=== PATIENT | female | born 1975 | race Caucasian/White ===

== ENCOUNTER 2017-10-01 04:49 | Inpatient (IN) | payer MEDICAID ==
[~2017-10-01] VITALS: Ht 162.6 cm; Wt 88.5 kg
[~2017-10-01 04:49] MED LIST: GABA-533 PO; LURA20TA PO; LURA40 PO
[2017-10-01] MEDS ORDERED: HALOPERIDOL 5 MG TABLET PO PRN (08:00)
[2017-10-01] MEDS ORDERED: LORazepam 2 MG TABLET PO PRN (08:00)
[2017-10-01 08:53] VITALS: BP 113/70
[2017-10-01] MEDS: BACITRACIN 28.4 GM OINTMENT TP SCH ×2 (10:20→16:14)
[2017-10-01] MEDS ORDERED: IBUPROFEN 400 MG TABLET PO PRN (16:15)
[2017-10-01] MEDS ORDERED: ACETAMINOPHEN 325 MG TABLET PO PRN (16:15)
[2017-10-01 16:25] VITALS: BP 114/66
[2017-10-01] MEDS: OLANZapine 7.5 MG TABLET PO SCH (21:12)
[2017-10-02 06:21] VITALS: BP 104/61
[2017-10-02 08:27] LABS: AMPHET/METH SCREEN,URINE POSITIVE (NEGATIVE); BARBITURATE SCREEN, URINE NEGATIVE (NEGATIVE); BENZODIAZEPINES SCREEN,URINE NEGATIVE (NEGATIVE); CANNABINOID SCREEN,URINE POSITIVE (NEGATIVE); COCAINE SCREEN,URINE NEGATIVE (NEGATIVE); METHADONE SCREEN, URINE NEGATIVE (NEGATIVE); OPIATE SCREEN,URINE NEGATIVE (NEGATIVE)
[2017-10-02 08:28] LABS: PHENCYCLIDINE SCREEN,URINE NEGATIVE (NEGATIVE)
[2017-10-02 08:32] VITALS: BP 112/60
[2017-10-02] MEDS: BACITRACIN 28.4 GM OINTMENT TP SCH ×2 (08:42→16:40)
[2017-10-02 10:23] LABS: BILIRUBIN,URINE NEGATIVE (NEGATIVE); GLUCOSE, URINE (UA) NEGATIVE (NEGATIVE); KETONES,URINE NEGATIVE (NEGATIVE); LEUKOCYTE ESTERASE ,URINE NEGATIVE (NEGATIVE); NITRATE,URINE NEGATIVE (NEGATIVE); OCCULT BLOOD,URINE NEGATIVE (NEGATIVE); PH,URINE 5.5 (5.0-8.0); PROTEIN,URINE NEGATIVE (NEGATIVE); UROBILINOGEN,URINE 0.2 mg/dL (<=1.0)
[2017-10-02 10:45] LABS: APPEARANCE,URINE TURBID (CLEAR)
[2017-10-02 16:17] VITALS: BP 117/67
[2017-10-02] MEDS: OLANZapine 7.5 MG TABLET PO SCH (20:17)
[2017-10-03 06:08] VITALS: BP 124/69
[2017-10-03] MEDS: BACITRACIN 28.4 GM OINTMENT TP SCH ×2 (08:32→16:39)
[2017-10-03 08:49] VITALS: BP 98/61
[2017-10-03 16:22] VITALS: BP 108/60
[2017-10-03] MEDS: OLANZapine 7.5 MG TABLET PO SCH (20:10)
[2017-10-04] MEDS: BACITRACIN 28.4 GM OINTMENT TP SCH ×2 (09:06→17:01)
[2017-10-04 16:28] VITALS: BP 127/81
[2017-10-04] MEDS: OLANZapine 7.5 MG TABLET PO SCH (20:47)
[2017-10-04] MEDS: ZOLPIDEM TARTRATE 10 MG TABLET PO PRN (21:06)
[2017-10-05 02:45] VITALS: BP 117/72
[2017-10-05] MEDS: BACITRACIN 28.4 GM OINTMENT TP SCH ×2 (09:23→17:03)
[2017-10-05 16:21] VITALS: BP 114/67
[2017-10-05] MEDS: OLANZapine 7.5 MG TABLET PO SCH (20:24)
[2017-10-05] MEDS: ZOLPIDEM TARTRATE 10 MG TABLET PO PRN (20:25)
[2017-10-06] VITALS: BP 120/76
[2017-10-06] MEDS ORDERED: OLAN7.5T2 PO (08:34)
[2017-10-06] MEDS: BACITRACIN 28.4 GM OINTMENT TP SCH (08:39)
== END 2017-10-06 13:20 | disposition home or self-care (01) | DRG 750 ==
LOC: B2S 07:00
PROVIDERS: ADMIT Psychiatry & Neurology Psychiatry; ATTEND Psychiatry & Neurology Psychiatry
DX: F25.9 Schizoaffective disorder, unspecified (principal); R45.851 Suicidal ideations; Z59.0 Homelessness; I10 Essential (primary) hypertension; F32.9 Major depressive disorder, single episode, unspecified; D64.9 Anemia, unspecified; F12.90 Cannabis use, unspecified, uncomplicated; F15.90 Other stimulant use, unspecified, uncomplicated; Z90.49 Acquired absence of other specified parts of digestive tract; Z79.899 Other long term (current) drug therapy
CPT/HCPCS: 80307

== ENCOUNTER 2018-02-18 11:41 | Inpatient (IN) | payer MEDICAID ==
[~2018-02-18] VITALS: Ht 162.6 cm; Wt 77.3 kg
[~2018-02-18 11:41] MED LIST changes: -GABA-533 PO; -LURA20TA PO; -LURA40 PO; +OLAN7.5T2 PO
[2018-02-18 12:22] VITALS: BP 124/81
[2018-02-18 14:05] VITALS: BP 118/77
[2018-02-18] MEDS ORDERED: PNEUMOCOCCAL VACCINE POLYVALENT 0.5 ML VIAL [PPSV23] IM ONE (14:30)
[2018-02-18] MEDS: CEFUROXIME AXETIL 250 MG TABLET PO SCH (17:16)
[2018-02-18] MEDS: LORazepam 2 MG TABLET PO PRN (17:16)
[2018-02-18] MEDS: ZOLPIDEM TARTRATE 10 MG TABLET PO PRN (21:22)
[2018-02-18] MEDS: OLANZapine 10 MG TABLET PO SCH (21:22)
[2018-02-19 06:55] VITALS: BP 122/60
[2018-02-19 08:37] VITALS: BP 110/60
[2018-02-19 08:49] LABS: AMPHET/METH SCREEN,URINE POSITIVE (NEGATIVE); BARBITURATE SCREEN, URINE NEGATIVE (NEGATIVE); BENZODIAZEPINES SCREEN,URINE NEGATIVE (NEGATIVE); CANNABINOID SCREEN,URINE POSITIVE (NEGATIVE); COCAINE SCREEN,URINE NEGATIVE (NEGATIVE); METHADONE SCREEN, URINE NEGATIVE (NEGATIVE); OPIATE SCREEN,URINE NEGATIVE (NEGATIVE)
[2018-02-19 08:50] LABS: PHENCYCLIDINE SCREEN,URINE NEGATIVE (NEGATIVE)
[2018-02-19 09:15] LABS: APPEARANCE,URINE CLEAR (CLEAR); BILIRUBIN,URINE NEGATIVE (NEGATIVE); GLUCOSE, URINE (UA) NEGATIVE (NEGATIVE); KETONES,URINE NEGATIVE (NEGATIVE); LEUKOCYTE ESTERASE ,URINE NEGATIVE (NEGATIVE); NITRATE,URINE NEGATIVE (NEGATIVE); OCCULT BLOOD,URINE NEGATIVE (NEGATIVE); PROTEIN,URINE NEGATIVE (NEGATIVE); UROBILINOGEN,URINE 0.2 mg/dL (<=1.0)
[2018-02-19] MEDS: CEFUROXIME AXETIL 250 MG TABLET PO SCH ×2 (10:26→21:12)
[2018-02-19 16:27] VITALS: BP 100/60
[2018-02-19] MEDS: OLANZapine 10 MG TABLET PO SCH (21:12)
[2018-02-20 06:43] VITALS: BP 109/66
[2018-02-20 08:29] VITALS: BP 104/65
[2018-02-20] MEDS: CEFUROXIME AXETIL 250 MG TABLET PO SCH ×2 (09:56→16:26)
[2018-02-20 16:14] VITALS: BP 112/68
[2018-02-20] MEDS: LORazepam 2 MG TABLET PO PRN (16:26)
[2018-02-20] MEDS: OLANZapine 10 MG TABLET PO SCH (20:07)
[2018-02-21] VITALS: BP 117/73
[2018-02-21] MEDS: CEFUROXIME AXETIL 250 MG TABLET PO SCH (10:10)
[2018-02-21] MEDS: LORazepam 2 MG TABLET PO PRN (15:47)
[2018-02-21] MEDS: HALOPERIDOL 5 MG TABLET PO PRN (15:47)
[2018-02-21 16:39] VITALS: BP 117/80
[2018-02-21] MEDS: OLANZapine 10 MG TABLET PO SCH ×2 (21:00→21:29)
[2018-02-22 05:33] VITALS: BP 120/81
[2018-02-22 09:05] VITALS: BP 109/67
[2018-02-22] MEDS: HALOPERIDOL 5 MG TABLET PO PRN (16:10)
[2018-02-22] MEDS: LORazepam 2 MG TABLET PO PRN (16:10)
[2018-02-22 16:21] VITALS: BP 112/74
[2018-02-22] MEDS: ZOLPIDEM TARTRATE 10 MG TABLET PO PRN (20:18)
[2018-02-22] MEDS: OLANZapine 10 MG TABLET PO SCH (21:00)
[2018-02-23 06:12] VITALS: BP 110/68
[2018-02-23] MEDS: LORazepam 2 MG TABLET PO PRN ×2 (09:33→17:46)
[2018-02-23] MEDS: OLANZapine 10 MG TABLET PO SCH (20:58)
[2018-02-23] MEDS: ZOLPIDEM TARTRATE 10 MG TABLET PO PRN (21:27)
[2018-02-24] MEDS ORDERED: OLAN10TA3 PO (07:50)
== END 2018-02-24 12:30 | disposition home or self-care (01) | DRG 750 ==
LOC: B2S 13:30
PROVIDERS: ADMIT Psychiatry & Neurology Psychiatry; ATTEND Psychiatry & Neurology Psychiatry
DX: F25.1 Schizoaffective disorder, depressive type (principal); Z59.0 Homelessness; D64.9 Anemia, unspecified; F19.10 Other psychoactive substance abuse, uncomplicated; Z65.3 Problems related to other legal circumstances; F15.10 Other stimulant abuse, uncomplicated; F12.10 Cannabis abuse, uncomplicated; Z90.49 Acquired absence of other specified parts of digestive tract; Z91.5 Personal history of self-harm; Z71.51 Drug abuse counseling and surveillance of drug abuser
CPT/HCPCS: 80307; 90471

== ENCOUNTER 2018-02-26 14:23 | Inpatient (IN) | payer MEDICAID ==
[~2018-02-26] VITALS: Ht 162.6 cm; Wt 76.2 kg
[2018-02-26 15:18] VITALS: BP 128/80
[2018-02-26] MEDS ORDERED: HALOPERIDOL 5 MG TABLET PO PRN (16:00)
[2018-02-26 16:26] VITALS: BP 118/80
[2018-02-26] MEDS ORDERED: PETROLATUM,WHITE 71 GM JELLY TP PRN (20:15)
[2018-02-26] MEDS ORDERED: GuaiFENesin/D-METHORPHAN [SUGAR-FREE] 200-20MG/10 ML SYRUP UDCUP PO PRN (20:15)
[2018-02-26] MEDS ORDERED: IBUPROFEN 400 MG TABLET PO PRN (20:15)
[2018-02-26] MEDS ORDERED: ONDANSETRON HCL 4 MG TABLET PO PRN (20:15)
[2018-02-26] MEDS ORDERED: CloNIDine HCL 0.1 MG TABLET PO PRN (20:15)
[2018-02-26] MEDS ORDERED: LOPERAMIDE HCL 2 MG CAPSULE PO PRN (20:15)
[2018-02-26] MEDS ORDERED: MAG HYDROX/AL HYDROX/SIMETH ES 30 ML SUSPENSION UDCUP PO PRN (20:15)
[2018-02-26] MEDS ORDERED: ALBUTEROL SULFATE HFA 90 MCG/PUFF 8 GM INHALER IH PRN (20:15)
[2018-02-26] MEDS ORDERED: MAGNESIUM HYDROXIDE SUSPENSION 30 ML UDCUP PO PRN (20:15)
[2018-02-26] MEDS ORDERED: NICOTINE 14 MG/24 HOUR PATCH TD PRN (20:15)
[2018-02-26] MEDS ORDERED: ACETAMINOPHEN 325 MG TABLET PO PRN (20:15)
[2018-02-26] MEDS ORDERED: DOCUSATE SODIUM 100 MG CAPSULE PO PRN (20:15)
[2018-02-27 04:00] VITALS: BP 114/75
[2018-02-27 08:01] VITALS: BP 112/81
[2018-02-27] MEDS: PALIPERIDONE 3 MG ER TABLET PO SCH (10:01)
[2018-02-27 16:00] VITALS: BP 114/68
[2018-02-27] MEDS: ZOLPIDEM TARTRATE 10 MG TABLET PO PRN (20:31)
[2018-02-28 07:04] VITALS: BP 120/81
[2018-02-28 08:17] VITALS: BP 108/61
[2018-02-28] MEDS: PALIPERIDONE 3 MG ER TABLET PO SCH (09:45)
[2018-02-28] MEDS: LORazepam 2 MG TABLET PO PRN ×2 (10:09→18:28)
[2018-02-28 16:13] VITALS: BP 115/73
[2018-03-01 06:11] VITALS: BP 120/81
[2018-03-01 08:19] LABS: AMPHET/METH SCREEN,URINE POSITIVE (NEGATIVE); BARBITURATE SCREEN, URINE NEGATIVE (NEGATIVE); BENZODIAZEPINES SCREEN,URINE NEGATIVE (NEGATIVE); CANNABINOID SCREEN,URINE POSITIVE (NEGATIVE); COCAINE SCREEN,URINE NEGATIVE (NEGATIVE); METHADONE SCREEN, URINE NEGATIVE (NEGATIVE); OPIATE SCREEN,URINE NEGATIVE (NEGATIVE)
[2018-03-01] MEDS: PALIPERIDONE 3 MG ER TABLET PO SCH (08:22)
[2018-03-01 08:40] LABS: PHENCYCLIDINE SCREEN,URINE NEGATIVE (NEGATIVE)
[2018-03-01] MEDS: LORazepam 2 MG TABLET PO PRN ×3 (08:52→21:21)
[2018-03-01 09:14] VITALS: BP 113/69
[2018-03-01 09:26] LABS: APPEARANCE,URINE CLEAR (CLEAR); BILIRUBIN,URINE NEGATIVE (NEGATIVE); GLUCOSE, URINE (UA) NEGATIVE (NEGATIVE); KETONES,URINE NEGATIVE (NEGATIVE); LEUKOCYTE ESTERASE ,URINE NEGATIVE (NEGATIVE); NITRATE,URINE NEGATIVE (NEGATIVE); OCCULT BLOOD,URINE NEGATIVE (NEGATIVE); PH,URINE 5.5 (5.0-8.0); PROTEIN,URINE NEGATIVE (NEGATIVE); UROBILINOGEN,URINE 0.2 mg/dL (<=1.0)
[2018-03-01 16:07] VITALS: BP 120/70
[2018-03-01] MEDS: ZOLPIDEM TARTRATE 10 MG TABLET PO PRN (20:40)
[2018-03-02 00:50] VITALS: BP 110/63
[2018-03-02 08:41] VITALS: BP 106/57
[2018-03-02] MEDS: PALIPERIDONE 3 MG ER TABLET PO SCH (08:51)
[2018-03-02] MEDS: LORazepam 2 MG TABLET PO PRN ×2 (11:09→19:53)
[2018-03-02 16:06] VITALS: BP 110/74
[2018-03-02] MEDS: ZOLPIDEM TARTRATE 10 MG TABLET PO PRN (20:49)
[2018-03-03 00:08] VITALS: BP 110/68
[2018-03-03 00:16] VITALS: BP 104/67
[2018-03-03] MEDS ORDERED: PALI3 PO (07:44)
[2018-03-03] MEDS: PALIPERIDONE 3 MG ER TABLET PO SCH (08:26)
[2018-03-03 08:40] VITALS: BP 112/65
== END 2018-03-03 09:45 | disposition home or self-care (01) | DRG 750 ==
LOC: B2S 15:50
PROVIDERS: ATTEND Psychiatry & Neurology Psychiatry
DX: F25.0 Schizoaffective disorder, bipolar type (principal); R45.851 Suicidal ideations; Z59.0 Homelessness; F15.10 Other stimulant abuse, uncomplicated; F41.9 Anxiety disorder, unspecified; Z65.3 Problems related to other legal circumstances; Z91.19 Patient's noncompliance with other medical treatment and regimen; Z79.899 Other long term (current) drug therapy; Z90.49 Acquired absence of other specified parts of digestive tract; Z71.51 Drug abuse counseling and surveillance of drug abuser; Z28.21 Immunization not carried out because of patient refusal
CPT/HCPCS: 80307; 87081

== ENCOUNTER 2018-03-04 12:44 | Inpatient (IN) | payer MEDICAID, OTHER ==
[~2018-03-04] VITALS: Ht 162.6 cm; Wt 77.5 kg
[~2018-03-04 12:44] MED LIST changes: -OLAN7.5T2 PO; +PALI3 PO
[2018-03-04 13:39] LABS: BASOPHILS % (AUTO) 0.5 % (0.0-2.0); EOSINOPHILS % (AUTO) 0.4 % (1.0-6.0); HEMATOCRIT 37.4 % (36-46); HEMOGLOBIN 12.5 g/dL (12.0-16.0); LYMPHOCYTES # (AUTO) 1.8 K/uL (1.0-4.8); LYMPHOCYTES % (AUTO) 23.1 % (22.0-44.0); MEAN CORPUSCULAR HEMOGLOBIN 32.5 pg (26.0-34.0); MEAN CORPUSCULAR HGB CONC 33.3 G/dL (31.0-37.0); MEAN CORPUSCULAR VOLUME 97 fL (80-100); MONOCYTES # (AUTO) 0.4 K/uL (0.1-1.0); MONOCYTES % (AUTO) 5.4 % (2.0-9.0); NEUTROPHILS # (AUTO) 5.4 K/uL (1.8-7.7); NEUTROPHILS % (AUTO) 70.6 % (40.0-70.0); PLATELET COUNT (AUTO) 331 K/uL (150-450); RED BLOOD CELL COUNT(AUTO) 3.84 MIL/uL (4.00-5.20); RED CELL DISTRIBUTION WIDTH 14.2 % (11.5-14.5)
[2018-03-04 13:44] LABS: AMPHET/METH SCREEN,URINE NEGATIVE (NEGATIVE); BARBITURATE SCREEN, URINE NEGATIVE (NEGATIVE); BENZODIAZEPINES SCREEN,URINE NEGATIVE (NEGATIVE); CANNABINOID SCREEN,URINE POSITIVE (NEGATIVE); COCAINE SCREEN,URINE NEGATIVE (NEGATIVE); METHADONE SCREEN, URINE NEGATIVE (NEGATIVE); OPIATE SCREEN,URINE NEGATIVE (NEGATIVE)
[2018-03-04 13:45] LABS: PHENCYCLIDINE SCREEN,URINE NEGATIVE (NEGATIVE)
[2018-03-04 13:47] LABS: ANION GAP 7 mmol/L (8-16); CALCIUM, TOTAL 8.4 mg/dL (8.8-10.5); CARBON DIOXIDE 28 mmol/L (22-29); CHLORIDE 104 mmol/L (98-107); CREATININE 0.62 mg/dL (0.60-1.30); GLOMERULAR FILTR. RATE CALC > 60 mL/min (>60); GLUCOSE,RANDOM 119 mg/dL (70-110); POTASSIUM 4.1 mmol/L (3.5-5.1); SODIUM SERUM 139 mmol/L (136-145); UREA NITROGEN, BLOOD 8 mg/dL (7-18)
[2018-03-04 13:53] LABS: ALANINE AMINOTRANSFERASE 20 U/L (12-78); ALBUMIN 3.4 g/dL (3.4-5.0); ALKALINE PHOSPHATASE 81 U/L (46-116); ASPARTATE AMINOTRANSFERASE 11 U/L (15-37); BILIRUBIN,TOTAL 0.2 mg/dL (0.1-1.0); TOTAL PROTEIN, SERUM 7.5 g/dL (6.4-8.2)
[2018-03-04] MEDS ORDERED: DiphenhydrAMINE HCL 25 MG CAPSULE PO ONE (14:45)
[2018-03-04] MEDS ORDERED: HALOPERIDOL 5 MG TABLET PO ONE (14:45)
[2018-03-04 17:45] VITALS: BP 122/78
[2018-03-04] MEDS ORDERED: MAGNESIUM HYDROXIDE SUSPENSION 30 ML UDCUP PO PRN (18:30)
[2018-03-04] MEDS ORDERED: PETROLATUM,WHITE 71 GM JELLY TP PRN (18:30)
[2018-03-04] MEDS ORDERED: LOPERAMIDE HCL 2 MG CAPSULE PO PRN (18:30)
[2018-03-04] MEDS ORDERED: MAG HYDROX/AL HYDROX/SIMETH ES 30 ML SUSPENSION UDCUP PO PRN (18:30)
[2018-03-04] MEDS ORDERED: DOCUSATE SODIUM 100 MG CAPSULE PO PRN (18:30)
[2018-03-04] MEDS ORDERED: ACETAMINOPHEN 325 MG TABLET PO PRN (18:30)
[2018-03-05] MEDS ORDERED: NICOTINE 14 MG/24 HOUR PATCH TD SCH (09:00)
[2018-03-05] MEDS: LORazepam 2 MG TABLET PO PRN ×3 (10:22→21:55)
[2018-03-05] MEDS: PALIPERIDONE 3 MG ER TABLET PO SCH (12:32)
[2018-03-05 14:18] VITALS: BP 90/55
[2018-03-05] MEDS: ZOLPIDEM TARTRATE 10 MG TABLET PO PRN (20:00)
[2018-03-06] MEDS: PALIPERIDONE 3 MG ER TABLET PO SCH (09:32)
[2018-03-06] MEDS: LORazepam 2 MG TABLET PO PRN ×3 (12:00→20:02)
[2018-03-06 16:34] VITALS: BP 111/67
[2018-03-06] MEDS: ZOLPIDEM TARTRATE 10 MG TABLET PO PRN (20:22)
[2018-03-06] MEDS: OLANZapine 5 MG RAPDIS TABLET PO PRN (20:48)
[2018-03-07] VITALS: BP 120/76
[2018-03-07] MEDS: LORazepam 2 MG TABLET PO PRN ×4 (00:12→21:41)
[2018-03-07] MEDS: OLANZapine 5 MG RAPDIS TABLET PO PRN (01:23)
[2018-03-07] MEDS: PALIPERIDONE 3 MG ER TABLET PO SCH (09:18)
[2018-03-07 16:13] VITALS: BP 111/72
[2018-03-07] MEDS: ZOLPIDEM TARTRATE 10 MG TABLET PO PRN (20:16)
[2018-03-07] MEDS: NICOTINE 14 MG/24 HOUR PATCH TD PRN (21:02)
[2018-03-08 00:07] VITALS: BP 120/80
[2018-03-08] MEDS: PALIPERIDONE 3 MG ER TABLET PO SCH (08:32)
[2018-03-08] MEDS: LORazepam 2 MG TABLET PO PRN ×4 (08:32→23:51)
[2018-03-08 09:50] VITALS: BP 111/69
[2018-03-08 16:29] VITALS: BP 117/75
[2018-03-08] MEDS: NICOTINE 14 MG/24 HOUR PATCH TD PRN (18:35)
[2018-03-08] MEDS: ZOLPIDEM TARTRATE 10 MG TABLET PO PRN (20:17)
[2018-03-09] VITALS: BP 118/73
[2018-03-09 08:18] VITALS: BP 104/65
[2018-03-09] MEDS: PALIPERIDONE 3 MG ER TABLET PO SCH (09:33)
[2018-03-09] MEDS: LORazepam 2 MG TABLET PO PRN (10:27)
[2018-03-09] MEDS: NICOTINE 14 MG/24 HOUR PATCH TD PRN (13:20)
== END 2018-03-09 14:50 | disposition home or self-care (01) | DRG 750 ==
LOC: EMS 12:46 → B2S 16:22
PROVIDERS: ADMIT Psychiatry & Neurology Psychiatry; ATTEND Psychiatry & Neurology Psychiatry
DX: F25.1 Schizoaffective disorder, depressive type (principal); R45.851 Suicidal ideations; G40.909 Epilepsy, unspecified, not intractable, without status epilepticus; D64.9 Anemia, unspecified; F41.9 Anxiety disorder, unspecified; E78.5 Hyperlipidemia, unspecified; F19.10 Other psychoactive substance abuse, uncomplicated; K21.9 Gastro-esophageal reflux disease without esophagitis; J45.909 Unspecified asthma, uncomplicated; I10 Essential (primary) hypertension; F17.210 Nicotine dependence, cigarettes, uncomplicated; Z90.49 Acquired absence of other specified parts of digestive tract
CPT/HCPCS: 87081; 90686; 99285; G0480

== ENCOUNTER 2018-03-09 20:02 | Inpatient (IN) | payer MEDICAID ==
[~2018-03-09] VITALS: Ht 162.6 cm; Wt 81.4 kg
[2018-03-09] MEDS ORDERED: ZOLPIDEM TARTRATE 10 MG TABLET PO PRN (20:45)
[2018-03-09] MEDS ORDERED: HALOPERIDOL 5 MG TABLET PO PRN (20:45)
[2018-03-09 21:00] VITALS: BP 124/85
[2018-03-09] MEDS ORDERED: DOCUSATE SODIUM 100 MG CAPSULE PO PRN (21:15)
[2018-03-09] MEDS ORDERED: ALBUTEROL SULFATE HFA 90 MCG/PUFF 8 GM INHALER IH PRN (21:15)
[2018-03-09] MEDS ORDERED: IBUPROFEN 400 MG TABLET PO PRN (21:15)
[2018-03-09] MEDS ORDERED: NICOTINE 14 MG/24 HOUR PATCH TD PRN (21:15)
[2018-03-09] MEDS ORDERED: PETROLATUM,WHITE 71 GM JELLY TP PRN (21:15)
[2018-03-09] MEDS ORDERED: LOPERAMIDE HCL 2 MG CAPSULE PO PRN (21:15)
[2018-03-09] MEDS ORDERED: CloNIDine HCL 0.1 MG TABLET PO PRN (21:15)
[2018-03-09] MEDS ORDERED: MAGNESIUM HYDROXIDE SUSPENSION 30 ML UDCUP PO PRN (21:15)
[2018-03-09] MEDS ORDERED: GuaiFENesin/D-METHORPHAN [SUGAR-FREE] 200-20MG/10 ML SYRUP UDCUP PO PRN (21:15)
[2018-03-09] MEDS ORDERED: ONDANSETRON HCL 4 MG TABLET PO PRN (21:15)
[2018-03-09] MEDS ORDERED: MAG HYDROX/AL HYDROX/SIMETH ES 30 ML SUSPENSION UDCUP PO PRN (21:15)
[2018-03-09] MEDS: LORazepam 2 MG TABLET PO PRN (21:22)
[2018-03-10 00:17] VITALS: BP 122/83
[2018-03-10] MEDS: OLANZapine 5 MG RAPDIS TABLET PO PRN (03:30)
[2018-03-10] MEDS: LORazepam 2 MG TABLET PO PRN ×2 (03:30→20:49)
[2018-03-10 08:12] VITALS: BP 110/64
[2018-03-10] MEDS: PALIPERIDONE 3 MG ER TABLET PO SCH (08:42)
[2018-03-10] MEDS ORDERED: PALIPERIDONE 3 MG ER TABLET PO SCH (09:00)
[2018-03-10] MEDS ORDERED: DiphenhydrAMINE HCL 50 MG/ML VIAL IM ONE (11:30)
[2018-03-10] MEDS ORDERED: LORazepam 2 MG/ML VIAL IM ONE (11:30)
[2018-03-10] MEDS ORDERED: HALOPERIDOL LACTATE 5 MG/ML VIAL IM ONE (11:30)
[2018-03-10] MEDS ORDERED: HALOPERIDOL LACTATE 5 MG/ML VIAL ONE (11:31)
[2018-03-10] MEDS ORDERED: DiphenhydrAMINE HCL 50 MG/ML VIAL ONE (11:31)
[2018-03-10] MEDS ORDERED: LORazepam 2 MG/ML VIAL ONE (11:31)
[2018-03-10] MEDS: GABAPENTIN 400 MG CAPSULE PO SCH ×3 (12:43→23:34)
[2018-03-10 17:19] VITALS: BP 112/69
[2018-03-11] MEDS: GABAPENTIN 400 MG CAPSULE PO SCH ×4 (06:18→23:55)
[2018-03-11] MEDS: PALIPERIDONE 3 MG ER TABLET PO SCH (09:00)
[2018-03-11 12:05] VITALS: BP 114/78
[2018-03-11] MEDS: LORazepam 2 MG TABLET PO PRN ×3 (14:29→23:55)
[2018-03-11 16:07] VITALS: BP 124/78
[2018-03-11] MEDS: OLANZapine 5 MG RAPDIS TABLET PO PRN (16:41)
[2018-03-12 00:30] VITALS: BP 121/76
[2018-03-12] MEDS: LORazepam 2 MG TABLET PO PRN ×4 (03:57→21:40)
[2018-03-12] MEDS: GABAPENTIN 400 MG CAPSULE PO SCH ×4 (06:09→23:56)
[2018-03-12 07:55] LABS: BASOPHILS % (AUTO) 0.5 % (0.0-2.0); EOSINOPHILS % (AUTO) 1.5 % (1.0-6.0); HEMATOCRIT 35.2 % (36-46); HEMOGLOBIN 11.9 g/dL (12.0-16.0); LYMPHOCYTES # (AUTO) 2.3 K/uL (1.0-4.8); LYMPHOCYTES % (AUTO) 30.1 % (22.0-44.0); MEAN CORPUSCULAR HEMOGLOBIN 32.4 pg (26.0-34.0); MEAN CORPUSCULAR HGB CONC 33.8 G/dL (31.0-37.0); MEAN CORPUSCULAR VOLUME 96 fL (80-100); MONOCYTES # (AUTO) 0.6 K/uL (0.1-1.0); MONOCYTES % (AUTO) 7.7 % (2.0-9.0); NEUTROPHILS # (AUTO) 4.6 K/uL (1.8-7.7); NEUTROPHILS % (AUTO) 60.2 % (40.0-70.0); PLATELET COUNT (AUTO) 342 K/uL (150-450); RED BLOOD CELL COUNT(AUTO) 3.67 MIL/uL (4.00-5.20); RED CELL DISTRIBUTION WIDTH 13.5 % (11.5-14.5)
[2018-03-12 08:13] LABS: HEMOGLOBIN A1C 5.2 % (4.5-6.2)
[2018-03-12 08:17] LABS: ALANINE AMINOTRANSFERASE 40 U/L (12-78); ALKALINE PHOSPHATASE 91 U/L (46-116); ANION GAP 6 mmol/L (8-16); ASPARTATE AMINOTRANSFERASE 27 U/L (15-37); BILIRUBIN,TOTAL 0.2 mg/dL (0.1-1.0); CALCIUM, TOTAL 8.4 mg/dL (8.8-10.5); CARBON DIOXIDE 29 mmol/L (22-29); CHLORIDE 107 mmol/L (98-107); CHOL/HDL RATIO 3.8 (3.9-5.7); CHOLESTEROL 180 mg/dL (131-200); GLOMERULAR FILTR. RATE CALC > 60 mL/min (>60); GLUCOSE,RANDOM 89 mg/dL (70-110); HDL CHOLESTEROL 48 mg/dL (40-60); LDL CHOL (CALC.) 115 mg/dL (0-130); POTASSIUM 4.3 mmol/L (3.5-5.1); SODIUM SERUM 142 mmol/L (136-145); THYROID STIMULATING HORMONE 3.05 uIU/mL (0.36-3.74); TOTAL PROTEIN, SERUM 6.1 g/dL (6.4-8.2); TRIGLYCERIDES 87 mg/dL (15-150); UREA NITROGEN, BLOOD 14 mg/dL (7-18)
[2018-03-12] MEDS: PALIPERIDONE 3 MG ER TABLET PO SCH (08:46)
[2018-03-12 09:02] VITALS: BP 121/77
[2018-03-12] MEDS: OLANZapine 5 MG RAPDIS TABLET PO PRN ×2 (13:38→22:54)
[2018-03-12] MEDS: FERROUS SULFATE 325 MG EC TABLET PO SCH (16:02)
[2018-03-12 16:22] VITALS: BP 113/72
[2018-03-12 17:06] VITALS: BP 113/72
[2018-03-12] MEDS: ACETAMINOPHEN 325 MG TABLET PO PRN (17:06)
[2018-03-13] VITALS: BP 114/88
[2018-03-13] MEDS: LORazepam 2 MG TABLET PO PRN ×3 (04:25→19:58)
[2018-03-13] MEDS: FERROUS SULFATE 325 MG EC TABLET PO SCH ×2 (06:16→16:00)
[2018-03-13] MEDS: GABAPENTIN 400 MG CAPSULE PO SCH ×3 (06:16→17:18)
[2018-03-13 08:23] VITALS: BP 129/76
[2018-03-13] MEDS: PALIPERIDONE 3 MG ER TABLET PO SCH (09:39)
[2018-03-13 16:05] VITALS: BP 123/73
[2018-03-13] MEDS: OLANZapine 5 MG RAPDIS TABLET PO PRN (21:39)
[2018-03-14 00:30] VITALS: BP 128/67
[2018-03-14] MEDS: OLANZapine 5 MG RAPDIS TABLET PO PRN ×2 (01:51→17:02)
[2018-03-14] MEDS: LORazepam 2 MG TABLET PO PRN ×4 (04:37→17:02)
[2018-03-14] MEDS: GABAPENTIN 400 MG CAPSULE PO SCH ×4 (06:35→17:02)
[2018-03-14] MEDS: FERROUS SULFATE 325 MG EC TABLET PO SCH ×2 (06:35→17:02)
[2018-03-14] MEDS: PALIPERIDONE 3 MG ER TABLET PO SCH (07:56)
[2018-03-14 08:06] VITALS: BP 108/69
[2018-03-14 16:06] VITALS: BP 112/61
[2018-03-15] MEDS: LORazepam 2 MG TABLET PO PRN ×3 (00:11→12:06)
[2018-03-15] MEDS: GABAPENTIN 400 MG CAPSULE PO SCH ×3 (00:11→12:07)
[2018-03-15 01:50] VITALS: BP 116/79
[2018-03-15] MEDS: OLANZapine 5 MG RAPDIS TABLET PO PRN (01:51)
[2018-03-15] MEDS: ACETAMINOPHEN 325 MG TABLET PO PRN (01:52)
[2018-03-15] MEDS: FERROUS SULFATE 325 MG EC TABLET PO SCH (06:30)
[2018-03-15] MEDS ORDERED: FERR-89 PO (07:48)
[2018-03-15] MEDS ORDERED: GABA-533 PO (08:08)
[2018-03-15] MEDS: PALIPERIDONE 3 MG ER TABLET PO SCH (08:25)
[2018-03-15] MEDS ORDERED: TEMAZEPAM 15 MG CAPSULE PO SCH (21:00)
== END 2018-03-15 13:30 | DRG 750 ==
LOC: B3A 20:43
PROVIDERS: ADMIT Psychiatry & Neurology Child & Adolescent Psychiatry; ATTEND Psychiatry & Neurology Psychiatry
DX: F25.1 Schizoaffective disorder, depressive type (principal); R45.851 Suicidal ideations; F15.20 Other stimulant dependence, uncomplicated; G40.909 Epilepsy, unspecified, not intractable, without status epilepticus; D64.9 Anemia, unspecified; K21.9 Gastro-esophageal reflux disease without esophagitis; F41.9 Anxiety disorder, unspecified; F19.10 Other psychoactive substance abuse, uncomplicated; J45.909 Unspecified asthma, uncomplicated; Z91.5 Personal history of self-harm; Z65.3 Problems related to other legal circumstances; Z59.0 Homelessness; Z71.51 Drug abuse counseling and surveillance of drug abuser; Z23 Encounter for immunization
CPT/HCPCS: 83036; 84443; 87081; 99285; J1200; J1630; J2060

== ENCOUNTER 2020-11-01 04:13 | Inpatient (IN) | payer MEDICAID ==
[~2020-11-01] VITALS: Ht 162.6 cm; Wt 99.4 kg
[~2020-11-01 04:13] MED LIST changes: +FERR-89 PO; +GABA-533 PO; -PALI3 PO; +PALI3TAB14 PO
[2020-11-01 05:07] LABS: BASOPHILS % (AUTO) 0.4 % (0.0-2.0); EOSINOPHILS % (AUTO) 0.4 % (1.0-6.0); HEMATOCRIT 38.8 % (36-46); LYMPHOCYTES # (AUTO) 1.6 K/uL (1.0-4.8); LYMPHOCYTES % (AUTO) 14.7 % (22.0-44.0); MEAN CORPUSCULAR HEMOGLOBIN 31.2 pg (26.0-34.0); MEAN CORPUSCULAR HGB CONC 33.5 G/dL (31.0-37.0); MEAN CORPUSCULAR VOLUME 93 fL (80-100); MONOCYTES # (AUTO) 0.4 K/uL (0.1-1.0); NEUTROPHILS # (AUTO) 8.6 K/uL (1.8-7.7); NEUTROPHILS % (AUTO) 80.5 % (40.0-70.0); PLATELET COUNT (AUTO) 304 K/uL (150-450); RED BLOOD CELL COUNT(AUTO) 4.17 MIL/uL (4.00-5.20); RED CELL DISTRIBUTION WIDTH 13.9 % (11.5-14.5)
[2020-11-01 05:12] LABS: ANION GAP 8 mmol/L (8-16); CALCIUM, TOTAL 8.6 mg/dL (8.8-10.5); CARBON DIOXIDE 29 mmol/L (22-29); CHLORIDE 104 mmol/L (98-107); CREATININE 0.95 mg/dL (0.60-1.30); GLOMERULAR FILTR. RATE CALC > 60 mL/min (>60); GLUCOSE,RANDOM 135 mg/dL (70-110); POTASSIUM 4.1 mmol/L (3.5-5.1); SODIUM SERUM 141 mmol/L (136-145); UREA NITROGEN, BLOOD 8 mg/dL (7-18)
[2020-11-01 05:18] LABS: ALANINE AMINOTRANSFERASE 27 U/L (12-78); ALBUMIN 3.4 g/dL (3.4-5.0); ALKALINE PHOSPHATASE 134 U/L (46-116); ASPARTATE AMINOTRANSFERASE 14 U/L (15-37); BILIRUBIN,TOTAL 0.2 mg/dL (0.1-1.0); TOTAL PROTEIN, SERUM 7.5 g/dL (6.4-8.2)
[2020-11-01 05:24] LABS: ACETAMINOPHEN < 2 mcg/mL (10-30)
[2020-11-01 05:35] LABS: COVID AG,FIA SOURCE NASOPHARYNGEAL
[2020-11-01 06:15] LABS: SALICYLATE 1.7 mg/dL (2.8-20.0)
[2020-11-01 08:08] LABS: SALICYLATE 1.5 mg/dL (2.8-20.0)
[2020-11-01 08:18] LABS: ACETAMINOPHEN < 2 mcg/mL (10-30)
[2020-11-01] MEDS: LORazepam 2 MG TABLET PO PRN ×3 (08:59→22:03)
[2020-11-01 09:49] VITALS: BP 128/73
[2020-11-01] MEDS ORDERED: MAG HYDROX/AL HYDROX/SIMETH ES 30 ML SUSPENSION UDCUP PO PRN (23:45)
[2020-11-01] MEDS ORDERED: PETROLATUM,WHITE 28 GM JELLY TP PRN (23:45)
[2020-11-01] MEDS ORDERED: ALBUTEROL SULFATE HFA 90 MCG/PUFF 8 GM INHALER IH PRN (23:45)
[2020-11-01] MEDS ORDERED: OMEPRAZOLE 20 MG CAPSULE PO PRN (23:45)
[2020-11-01] MEDS ORDERED: LOPERAMIDE HCL 2 MG CAPSULE PO PRN (23:45)
[2020-11-01] MEDS ORDERED: BACITRACIN 28 GM OINTMENT TP PRN (23:45)
[2020-11-01] MEDS ORDERED: ACETAMINOPHEN 325 MG TABLET PO PRN (23:45)
[2020-11-01] MEDS ORDERED: DOCUSATE SODIUM 100 MG CAPSULE PO PRN (23:45)
[2020-11-01] MEDS ORDERED: CloNIDine HCL 0.1 MG TABLET PO PRN (23:45)
[2020-11-01] MEDS ORDERED: BENZOCAINE/MENTHOL LOZENGE PO PRN (23:45)
[2020-11-01] MEDS ORDERED: IBUPROFEN 600 MG TABLET PO PRN (23:45)
[2020-11-01] MEDS ORDERED: MAGNESIUM HYDROXIDE SUSPENSION 30 ML UDCUP PO PRN (23:45)
[2020-11-01] MEDS ORDERED: ONDANSETRON HCL 4 MG TABLET PO PRN (23:45)
[2020-11-02] MEDS ORDERED: PNEUMOCOCCAL VACCINE POLYVALENT 0.5 ML VIAL [PPSV23] IM. ONE (05:45)
[2020-11-02] MEDS: FERROUS SULFATE 325 MG EC TABLET PO SCH ×2 (06:47→16:26)
[2020-11-02] MEDS: CITALOPRAM HYDROBROMIDE 20 MG TABLET PO SCH (09:00)
[2020-11-02] MEDS: NICOTINE 21 MG/24 HOUR PATCH TD SCH (09:00)
[2020-11-02] MEDS: LORazepam 2 MG TABLET PO PRN ×2 (14:49→20:00)
[2020-11-02] MEDS: LURASIDONE HCL 20 MG TABLET PO SCH (16:26)
[2020-11-02] MEDS: PRAZOSIN HCL 1 MG CAPSULE PO SCH (20:05)
[2020-11-02] MEDS ORDERED: DiphenhydrAMINE HCL 50 MG/ML VIAL IM ONE (21:15)
[2020-11-02] MEDS ORDERED: LORazepam 2 MG/ML VIAL IM ONE (21:15)
[2020-11-02] MEDS ORDERED: HALOPERIDOL LACTATE 5 MG/ML VIAL IM ONE (21:15)
[2020-11-02] MEDS: HALOPERIDOL 5 MG TABLET PO PRN (21:38)
[2020-11-03] MEDS: FERROUS SULFATE 325 MG EC TABLET PO SCH ×2 (06:45→17:03)
[2020-11-03] MEDS: NICOTINE 21 MG/24 HOUR PATCH TD SCH (09:00)
[2020-11-03] MEDS: CITALOPRAM HYDROBROMIDE 20 MG TABLET PO SCH (09:00)
[2020-11-03] MEDS: LORazepam 2 MG TABLET PO PRN ×3 (14:17→23:40)
[2020-11-03] MEDS: LURASIDONE HCL 20 MG TABLET PO SCH (17:03)
[2020-11-03] MEDS: ZOLPIDEM TARTRATE 10 MG TABLET PO PRN (20:15)
[2020-11-03] MEDS: PRAZOSIN HCL 1 MG CAPSULE PO SCH (20:47)
[2020-11-04 00:02] VITALS: BP 119/80
[2020-11-04] MEDS: HALOPERIDOL 5 MG TABLET PO PRN (00:08)
[2020-11-04] MEDS: FERROUS SULFATE 325 MG EC TABLET PO SCH ×2 (07:02→16:53)
[2020-11-04 08:10] VITALS: BP 126/98
[2020-11-04] MEDS: NICOTINE 21 MG/24 HOUR PATCH TD SCH (09:00)
[2020-11-04] MEDS: CITALOPRAM HYDROBROMIDE 20 MG TABLET PO SCH (09:00)
[2020-11-04] MEDS: LORazepam 2 MG TABLET PO PRN ×2 (10:02→22:21)
[2020-11-04] MEDS ORDERED: LORazepam 2 MG/ML VIAL IM ONE (14:00)
[2020-11-04] MEDS: LURASIDONE HCL 20 MG TABLET PO SCH (16:53)
[2020-11-04] MEDS: ZOLPIDEM TARTRATE 10 MG TABLET PO PRN (20:08)
[2020-11-04] MEDS: PRAZOSIN HCL 1 MG CAPSULE PO SCH (21:00)
[2020-11-05] MEDS: FERROUS SULFATE 325 MG EC TABLET PO SCH ×2 (06:37→16:57)
[2020-11-05 08:30] VITALS: BP 126/75
[2020-11-05] MEDS: NICOTINE 21 MG/24 HOUR PATCH TD SCH (08:59)
[2020-11-05] MEDS: CITALOPRAM HYDROBROMIDE 20 MG TABLET PO SCH (08:59)
[2020-11-05] MEDS: LORazepam 2 MG TABLET PO PRN ×3 (12:05→21:50)
[2020-11-05 16:00] VITALS: BP 102/69
[2020-11-05] MEDS: LURASIDONE HCL 20 MG TABLET PO SCH (16:57)
[2020-11-05 17:42] VITALS: BP 125/72
[2020-11-05 18:42] VITALS: BP 120/76
[2020-11-05] MEDS: ZOLPIDEM TARTRATE 10 MG TABLET PO PRN (19:53)
[2020-11-05] MEDS: PRAZOSIN HCL 1 MG CAPSULE PO SCH (21:00)
[2020-11-05 21:50] VITALS: BP 156/80
[2020-11-05 22:50] VITALS: BP 139/86
[2020-11-05] MEDS: HALOPERIDOL 5 MG TABLET PO PRN (23:41)
[2020-11-06 01:50] VITALS: BP 111/66
[2020-11-06] MEDS: LORazepam 2 MG TABLET PO PRN (01:53)
[2020-11-06] MEDS: FERROUS SULFATE 325 MG EC TABLET PO SCH (07:05)
[2020-11-06 08:39] VITALS: BP 106/68
[2020-11-06] MEDS: CITALOPRAM HYDROBROMIDE 20 MG TABLET PO SCH (09:00)
[2020-11-06] MEDS: NICOTINE 21 MG/24 HOUR PATCH TD SCH (09:00)
[2020-11-06] MEDS ORDERED: LURA20TA PO (11:34)
[2020-11-06] MEDS ORDERED: CITA-144 PO (11:34)
[2020-11-06] MEDS ORDERED: PRAZ1 PO (11:35)
== END 2020-11-06 12:15 | disposition home or self-care (01) | DRG 754 ==
LOC: EMS 04:14 → 3EI 09:13
PROVIDERS: ADMIT Psychiatry & Neurology Psychiatry; ATTEND Psychiatry & Neurology Psychiatry
DX: F32.9 Major depressive disorder, single episode, unspecified (principal); R45.851 Suicidal ideations; F20.0 Paranoid schizophrenia; I10 Essential (primary) hypertension; E66.9 Obesity, unspecified; F15.10 Other stimulant abuse, uncomplicated; F41.9 Anxiety disorder, unspecified; G47.00 Insomnia, unspecified; K59.00 Constipation, unspecified; Z20.822 Contact with and (suspected) exposure to COVID-19; Z68.37 Body mass index [BMI] 37.0-37.9, adult
CPT/HCPCS: 80053; 85025; 99285; A9575; G0480; G0481; J1200; J1630; J2060